=== PATIENT | female | born 1935 | race Caucasian/White ===

== ENCOUNTER → 2016-07-20 | Outpatient (CLI) | payer OTHER, MEDICARE | LOC: MMPC 11:11 | PROVIDERS: ATTEND Internal Medicine | DX: N18.4 Chronic kidney disease, stage 4 (severe) (principal); E66.01 Morbid (severe) obesity due to excess calories; R21 Rash and other nonspecific skin eruption; R76.8 Other specified abnormal immunological findings in serum; I10 Essential (primary) hypertension; E78.5 Hyperlipidemia, unspecified; F32.9 Major depressive disorder, single episode, unspecified; R60.0 Localized edema; E11.9 Type 2 diabetes mellitus without complications; Z79.4 Long term (current) use of insulin | CPT/HCPCS: 99204; G0463 ==

== ENCOUNTER → 2016-08-11 | Outpatient (CLI) | payer OTHER, MEDICARE | LOC: MMPC 09:00 | PROVIDERS: ATTEND Obstetrics & Gynecology | DX: N83.202 Unspecified ovarian cyst, left side (principal) | CPT/HCPCS: 99213; G0463 ==

== ENCOUNTER → 2016-08-13 | Outpatient (CLI) | payer OTHER, MEDICARE ==
--- NOTE | 2016-08-13 15:49 | DI ---
PELVIC ULTRASOUND, 08/13/2016 2:27 PM Clinical History: Left ovarian cyst. Previous hysterectomy. Previous Exam: None at this facility. Technique: Transabdominal scans are performed. The uterus is surgically absent. There is a 22 mm simple cyst of the left ovary. The right ovary is s mall and measures 15 x 15 x 25 mm but is otherwise normal. There are no fluid collections or masses. Readin. 22 mm simple cyst of the left ovary. The right ovary is small but normal. 2. Status post hysterectomy.
== END ==
LOC: US 14:15
PROVIDERS: ATTEND Obstetrics & Gynecology
DX: N83.202 Unspecified ovarian cyst, left side (principal); Z90.710 Acquired absence of both cervix and uterus
CPT/HCPCS: 76856

== ENCOUNTER → 2016-08-20 | Outpatient (CLI) | payer OTHER, MEDICARE ==
[2016-08-20 10:33] LABS: BLOOD UREA NITROGEN 40 mg/dL (7-22); BUN/CREATININE RATIO 14.28 (6-20); CALCIUM 9.7 mg/dL (8.7-10.7); PHOSPHORUS 4.6 mg/dl (2.4-4.3)
== END ==
LOC: LAB 10:12
PROVIDERS: ATTEND Internal Medicine Nephrology
DX: N18.3 Chronic kidney disease, stage 3 (moderate) (principal)
CPT/HCPCS: 36415; 80069

== ENCOUNTER → 2016-09-08 | Outpatient (CLI) | payer OTHER, MEDICARE ==
[2016-09-08 11:12] LABS: BLOOD UREA NITROGEN 51 mg/dL (7-22); CALCIUM 9.3 mg/dL (8.7-10.7); PHOSPHORUS 6.5 mg/dl (2.4-4.3); SERUM ALBUMIN 3.6 g/dL (3.5-4.8)
== END ==
LOC: LAB 10:25
PROVIDERS: ATTEND Internal Medicine Nephrology
DX: N18.3 Chronic kidney disease, stage 3 (moderate) (principal)
CPT/HCPCS: 36415; 80069

== ENCOUNTER → 2016-09-16 | Outpatient (CLI) | payer OTHER, MEDICARE | LOC: MMPC 11:11 | PROVIDERS: ATTEND Internal Medicine | DX: E11.9 Type 2 diabetes mellitus without complications (principal); R60.0 Localized edema; F32.9 Major depressive disorder, single episode, unspecified; N18.4 Chronic kidney disease, stage 4 (severe); I10 Essential (primary) hypertension; E78.5 Hyperlipidemia, unspecified | CPT/HCPCS: 99213; G0463 ==

== ENCOUNTER → 2016-09-22 | Outpatient (CLI) | payer OTHER, MEDICARE | LOC: MMPC 09:00 | PROVIDERS: ATTEND Obstetrics & Gynecology | DX: N83.202 Unspecified ovarian cyst, left side (principal) | CPT/HCPCS: 99212; G0463 ==

== ENCOUNTER → 2016-11-06 | Outpatient (CLI) | payer OTHER, MEDICARE ==
[2016-11-06 11:01] LABS: HEMATOCRIT 32.9 % (37.0-47.0); MEAN CORPUSCULAR HEMOGLOBIN 31.3 PG (27-31); MEAN CORPUSCULAR HGB CONC 33.4 g/dL (33-37); MEAN CORPUSCULAR VOLUME 93.7 FL (81-99); MEAN PLATELET VOLUME 11.2 FL (7.4-12.2); RED BLOOD COUNT 3.51 10^6/uL (4.20-5.40)
[2016-11-06 11:11] LABS: BLOOD UREA NITROGEN 54 mg/dL (7-22); BUN/CREATININE RATIO 19.28 (6-20); CALCIUM 9.7 mg/dL (8.7-10.7); SERUM ALBUMIN 3.7 g/dL (3.5-4.8)
== END ==
LOC: LAB 10:12
PROVIDERS: ATTEND Internal Medicine Nephrology
DX: N18.3 Chronic kidney disease, stage 3 (moderate) (principal)
CPT/HCPCS: 36415; 80069; 82565; 83970; 84156; 85027

== ENCOUNTER 2017-10-02 20:43 | Inpatient (IN) ==
[2017-10-02] MEDS ORDERED: Sodium Chloride 0.9% 1,000 ML PRIMARY IV ONE (20:55)
[2017-10-02] MEDS ORDERED: LORazepam 2 MG/1 ML VIAL IVP ONE ×2 (20:55→22:12)
[2017-10-02 21:05] LABS: BASOPHILS # (AUTO) 0.04 10*3/UL; BASOPHILS % (AUTO) 0.6 % (0-1); EOSINOPHILS # (AUTO) 0.29 10*3/UL; EOSINOPHILS % (AUTO) 4.5 % (0-8); Hematocrit [HCT] 34.6 % (37.0-47.0); Hemoglobin [HGB] 11.7 g/dL (12.0-16.0); LYMPHOCYTES # (AUTO) 2.15 10*3/uL; MEAN CORPUSCULAR HEMOGLOBIN 33.5 PG (27-31); MEAN CORPUSCULAR HGB CONC 33.8 g/dL (33-37); MEAN CORPUSCULAR VOLUME 99.1 FL (81-99); MEAN PLATELET VOLUME 10.9 FL (7.4-12.2); MONOCYTES # (AUTO) 0.54 10*3/UL (0.3-0.8); MONOCYTES % (AUTO) 8.3 % (5-15); NEUTROPHILS # (AUTO) 3.47 10*3/UL; NEUTROPHILS % (AUTO) 53.3 % (50-80); RED BLOOD COUNT 3.49 10^6/uL (4.20-5.40)
[2017-10-02 21:19] LABS: LIPASE 344 IU/L (23-300); PLATELET MORPHOLOGY COMMENT NORMAL MORPHOLOGY (NORM); RBC MORPHOLOGY COMMENT NORMAL MORPHOLOGY (NORM); WBC MORPHOLOGY COMMENT NORMAL MORPHOLOGY (NORM)
[2017-10-02 21:21] LABS: BLOOD UREA NITROGEN 57 mg/dL (7-22); BUN/CREATININE RATIO 14.61 (6-20); SERUM ALBUMIN 3.9 g/dL (3.5-4.8)
[2017-10-02 21:46] LABS: BILIRUBIN,URINE NEGATIVE (NEG); CLARITY,URINE CLEAR (CLEAR); COLOR,URINE YELLOW (Y); GLUCOSE, URINE (UA) 100 mg/dL (NEG); OCCULT BLOOD,URINE MODERATE (NEG); PH,URINE 5.5 (5.0-8.5); PROTEIN,URINE >300 mg/dl (NEG); UROBILINOGEN,URINE 0.2 EU/dL (0.2)
[2017-10-02 22:04] LABS: URINE SAMPLE TYPE CATH SPECIMEN
[2017-10-02 22:05] LABS: RENAL EPITHELIAL CELLS,URINE FEW; SQUAMOUS EPITHELIAL CELL,UR FEW; URINE CRYSTALS MANY
--- NOTE | 2017-10-02 22:32 | PDOC ---
General Adult HPI - General Chief Complaint: Neck / Back Complaint Stated Complaint: LOW BACK PAIN Date Seen by Provider: 10/02/17 Time Seen by Provider: 20:50 Source: POSITIVE: Patient, EMS Exam Limitations: POSITIVE: No limitations Nurse's Notes Reviewed & Considered: Yes EMS Report Reviewed & Considered: Verbal - History of Present Illness Initial Comment: The patient is an 81-year-old female who is brought to the emergency department by ambulance with complaints of lower back pain. She has a known history of spinal stenosis and has had problems with her lower back all of her life. She states that recently she has been having worsening lower back pain. She denies any recent falls or injury. She was evaluated here in the emergency department last night and given several different pain medications. She states that she had some relief from pain until about 5:00 this morning. All day today she has been having significant pain. She has not been able to take any of her medications secondary to nausea and vomiting. She finally presents back to the emergency department by ambulance. She states that her pain is across her lower back and primarily down her right leg. She also has some pain that radiates around to her right lower abdomen. She denies any fevers or chills, urinary symptoms, chest pain or any other associated complaints. She is diabetic. She also has chronic kidney disease. She saw a neurosurgeon recently for her back and was told that she is not a surgical candidate at this point for her spinal stenosis because of her underlying medical issues. Have you received a tetanus shot in the past 10 years?: Unknown - Patient Home Medications Home Medications: Home Medications calcitriol 0.25 mcg capsule 0.25 mcg PO DAILY #90 cap 03/22/17 furosemide 20 mg tablet 20 mg PO DAILY #30 tab 03/22/17 insulin lispro (U-100) 100 unit/mL subcutaneous pen 15 unit SUBCUT AC #15 ml 10/30 levothyroxine 100 mcg tablet 100 mcg PO DAILY #100 tab 03/22/17 atenolol 25 mg tablet 37.5 mg PO QD #135 tab 07/19/17 insulin glargine (U-100) 100 unit/mL (3 mL) subcutaneous pen 15 unit SUBCUT QHS ml 07/19/17 losartan 100 mg tablet 100 mg PO DAILY #90 tab 07/19/17 rosuvastatin 20 mg tablet 20 mg PO QHS #90 tab 07/19/17 sertraline 50 mg tablet 50 mg PO DAILY #90 tab 07/19/17 triamcinolone acetonide 0.025 % topical cream 1 applic TOPICAL QDAY #80 g gabapentin 100 mg capsule 100 mg PO BID PRN #14 cap 09/16/17 tramadol 50 mg tablet 50 mg PO Q12H PRN #20 tab 09/16/17 Pen Needle, Diabetic [Pen Needle] 0 unit .ROUTE .MEDSUPPLY 10/02/17 - Patient Allergies Allergies/Adverse Reactions: Allergies 3 Allergy/AdvReac Type Severity Reaction Status Date / Time Sulfa (Sulfonamide Allergy Severe hives Verified 10/02/17 20:50 Antibiotics) pencillin Allergy Severe throat Uncoded 10/02/17 20:50 swelling Past Medical History - heen HEENT History: Denies History Cardiovascular History: Hypertension, CHF, Hyperlipidemia Respiratory History: Denies History Gastrointestinal History: Denies History Genitourinary History: Renal Failure Endocrine History: Type 2 Diabetes (insulin), Hypothyroidism Musculoskeletal History: Back Pain Additional Musculoskeletal History: PT HAS SCOLIOSIS AND SPINAL STENOSIS Neurological History: Denies History Blood Disorders: Denies History Psychiatric History: Denies History History of Sexually Transmitted Diseases: No Cancer History: Denies History In Past Year Been Physically Harmed or Verbally Threatened: No History of MDRO: No History of Other Communicable Diseases: No Tobacco Use: Never Smoker In the Past 12 Months, Have Used or Abuse Any Substance: None Type / Date of Surgery: PT STATES "I DON'T REMEMBER" Significant Family History: No pertinent family hx Past Medical History Reviewed: Reviewed - No Changes ROS - Limitations ROS Limitations: No Limitations Constitution: DENIES: Chills, Fever Cardiovascular: REPORTS: Denies Cardiac Symptoms Respiratory: REPORTS: Denies Resp Symptoms Neurological: DENIES: Headache Gastrointestinal: REPORTS: Abdominal Pain (Some right-sided lower abdominal pain ), Nausea, Vomitting (Has not been able to keep anything down including her medications today) Musculoskeletal: REPORTS: Back Pain. DENIES: Lower Extremity Swelling Genitourinary: DENIES: Dysuria, Difficulty Urinating Eyes: REPORTS: Denies Symptoms ENT: REPORTS: Denies Symptoms Skin: DENIES: Rash General Adult Exam - General Appearance General Appearance: POSITIVE: Alert, Cooperative, Other (She does appear to be in pain) - HEENT HEENT: POSITIVE: Head Inspection Nml, Eyes Inspection Nml, Ears Inspection Nml, Nose Inspection Nml, Pharynx Inspect. Nml, Dry Mucous Membranes - Neck Neck: POSITIVE: Normal Inspection. NEGATIVE: Lymphadenopathy - Respiratory Respiratory: POSITIVE: No Respiratory Distress, Breath Sounds Normal - Cardiovascular Cardiovascular: POSITIVE: Regular Rate & Rhythm, No Murmur Peripheral Pulses: Dorsalis-pedis (R): 2+, Dorsalis-pedis (L): 2+ - Abdomen Additional Abdominal Details: Her abdomen is distended, no guarding or rebound tenderness, no tenderness to exam - Back Back: POSITIVE: Other (She does have tenderness in the lower lumbar region) - Skin Skin: POSITIVE: Normal Color, No Rash - Extremities Extremity: Normal ROM: (All Extremities), Normal Inspection: (All Extremities) - Neurological / Psychological Neurological: POSITIVE: Oriented X3, Motor Normal, Sensation Normal General Adult Progress - Results Reviewed by me Xrays/CTs/US Reviewed by me: Yes Discussed with Radiologist: Yes Radiology Findings: CT the abdomen and pelvis done without IV contrast shows cholelithiasis, degenerative changes in the lumbar spine with no acute fracture , small cystic mass in the adnexa with no other acute abnormalities per radiologist. Lab Results Reviewed by Me: Yes Lab Results:: Laboratory Results 3 10/02/17 10/02/17 10/02/17 20:55 20:55 20:55 WBC 6.50 RBC 3.49 L Hgb 11.7 L Hct 34.6 L MCV 99.1 H MCH 33.5 H MCHC 33.8 RDW Std Deviation 50.8 H RDW Coeff of Sylvester 14.8 H Plt Count 202 MPV 10.9 Immature Gran % (Auto) 0.2 Neut % (Auto) 53.3 Lymph % (Auto) 33.1 [place] % (Auto) 8.3 Eos % (Auto) 4.5 Baso % (Auto) 0.6 Immature Gran # (Auto) 0.01 Neut # (Auto) 3.47 Lymph # (Auto) 2.15 [place] # (Auto) 0.54 Eos # (Auto) 0.29 Baso # (Auto) 0.04 WBC Morphology Comment Normal morphology Plt Morphology Comment Normal morphology RBC Morph Comment Normal morphology Sodium 137 Potassium 4.3 Chloride 102 Carbon Dioxide 25 Anion Gap 10 BUN 57 H Creatinine 3.9 H Estimated GFR Technician Trainee BUN/Creatinine Ratio 14.61 Glucose 198 H Calculated Osmolality 305.0 H Calcium 9.9 Magnesium 2.2 Total Bilirubin 0.5 AST 27 ALT 31 Alkaline Phosphatase 57 C-Reactive Protein 0.9 Total Protein 7.3 Albumin 3.9 Globulin 3.4 Albumin/Globulin Ratio 1.10 L Amylase 128 H Lipase 344 H Ur Collection Type Urine Color Urine Clarity Urine pH Ur Specific [place] Urine Protein Urine Glucose (UA) Urine Ketones Urine Occult Blood Urine Nitrate Urine Bilirubin Urine Urobilinogen Ur Leukocyte Esterase Urine RBC Urine WBC Ur Squamous Epith Cells Ur Renal Epithelial Cell Urine Crystals Urine Bacteria Urine Casts Urine Mucus Urine Trichomonas Urine Yeast Ur Culture Indicated? 3 10/02/17 21:40 WBC RBC Hgb Hct MCV MCH MCHC RDW Std Deviation RDW Coeff of Sylvester Plt Count MPV Immature Gran % (Auto) Neut % (Auto) Lymph % (Auto) [place] % (Auto) Eos % (Auto) Baso % (Auto) Immature Gran # (Auto) Neut # (Auto) Lymph # (Auto) [place] # (Auto) Eos # (Auto) Baso # (Auto) WBC Morphology Comment Plt Morphology Comment RBC Morph Comment Sodium Potassium Chloride Carbon Dioxide Anion Gap BUN Creatinine Estimated GFR BUN/Creatinine Ratio Glucose Calculated Osmolality Calcium Magnesium Total Bilirubin AST ALT Alkaline Phosphatase C-Reactive Protein Total Protein Albumin Globulin Albumin/Globulin Ratio Amylase Lipase Ur Collection Type Cath specimen Urine Color Yellow Urine Clarity Clear Urine pH 5.5 Ur Specific [place] 1.025 Urine Protein >300 A Urine Glucose (UA) 100 Urine Ketones Negative Urine Occult Blood Moderate H Urine Nitrate Negative Urine Bilirubin Negative Urine Urobilinogen 0.2 Ur Leukocyte Esterase Negative Urine RBC 4-8 A Urine WBC None Ur Squamous Epith Cells Few Ur Renal Epithelial Cell Few Urine Crystals Many Urine Bacteria None Urine Casts None Urine Mucus None Urine Trichomonas None Urine Yeast None Ur Culture Indicated? Culture not set CBC and BMP: 10/02/17 20:55 10/02/17 20:55 - Patient's Progress MDM / ED Course: The patient had received fentanyl 50 g and Zofran 4 mg IV in route per EMS. This did not really help her pain significantly. She was given Ativan 1 mg IV with significant relief initially. Her oxygen saturations however dropped when she was sleeping and she was placed on oxygen. After CT she did have recurrent pain and received a second dose of Ativan. CT scan of the abdomen and pelvis to include the lumbar spine was done without IV contrast secondary to her history of kidney disease. This showed cholelithiasis and a small cystic mass in the adnexa, no evidence of acute spinal fracture. Lab work revealed slightly elevated amylase and lipase with normal liver functions. Her creatinine was elevated to 3.9 up from her baseline of 3. Electrolytes were normal. White count was normal. Urinalysis shows protein with no evidence of infection. Findings were discussed with the patient. The patient lives alone and has agreed to be admitted to the hospital for pain control, hydration. Dr. Hunter has agreed to admit the patient. - Consult Counseled: POSITIVE: Patient, RE: Lab Results, RE: Radiology Results, RE: DX Patient Care Time - Estimated PCT Patient Care Time (In Minutes): 35 Vital Signs - VS Reviewed Vital Signs Reviewed: Yes (written nursing documentation reviewed) Discharge Clinical Impression: Chronic back pain, Chronic kidney disease, stage 4 (severe), Diabetes, Spinal stenosis, Back pain, Dehydration, Cholelithiasis, Elevated pancreatic enzyme Discharge Disposition: Admit to Inpatient Condition: Fair Follow Up With: JENNA CONTE [Primary Care Provider] - Date Decision to Admit to Inpatient: 10/02/17 Time Decision to Admit to Inpatient: 23:15
--- NOTE | 2017-10-02 22:50 | DI ---
EXAM: CT Abdomen and Pelvis Without Intravenous Contrast CLINICAL HISTORY: ITS.REASON low back pain, abdominal pain and vomiting Physician Notes: Tech Comments: TECHNIQUE: Axial computed tomography images of the abdomen and pelvis without intravenous contrast. COMPARISON: No relevant prior studies available. FINDINGS: Lung bases: Interstitial lung disease, possibly mild pulmonary fibrosis. Heart: Cardiomegaly. ABDOMEN: Liver: Unremarkable Gallbladder and bile ducts: Cholelithiasis. Pancreas: Unremarkable. Spleen: Unremarkable. Adrenals: Unremarkable. Kidneys and ureters: Small radiodense cyst/focus in the right kidney. No hydronephrosis. Stomach and bowel: Colonic diverticula without evidence of diverticulitis. PELVIS: Appendix: No findings to suggest acute appendicitis. Bladder: Unremarkable. Reproductive: 2 cm left adnexal cystic lesion. Hysterectomy. ABDOMEN and PELVIS: Intraperitoneal space: Unremarkable. Bones/joints: No acute fracture. Soft tissues: Patchy subcutaneous edema. Vasculature: Unremarkable. No abdominal aortic aneurysm. Lymph nodes: No enlarged lymph nodes. IMPRESSION: 1. Cholelithiasis. 2. 2 cm left adnexal cystic lesion.
[2017-10-02] MEDS ORDERED: GABAPENTIN 100 MG CAPSULE PO PRN (23:40)
[2017-10-02] MEDS ORDERED: DOCUSATE 100 MG CAPSULE PO PRN (23:40)
[2017-10-02] MEDS ORDERED: CALCIUM CARBONATE 500 MG (TUMS) CHEWABLE TABLET PO PRN (23:40)
[2017-10-02] MEDS ORDERED: ACETAMINOPHEN 325 MG TABLET PO PRN (23:40)
[2017-10-02] MEDS ORDERED: LIDOCAINE W/ SODIUM BICARB 0.5 ML SYR SUBD PRN (23:40)
[2017-10-02] MEDS ORDERED: traMADol 50 MG TABLET PO PRN (23:40)
[2017-10-02] MEDS ORDERED: Rosuvastatin Tab 20 MG TAB PO SCH (23:40)
[2017-10-02] MEDS ORDERED: Insulin Glargine SoloStar Inj 100 UNIT/ML INSULN.PEN SUBCUT SCH (23:40)
[2017-10-02] MEDS ORDERED: ONDANSETRON 4 MG/2 ML VIAL IVP PRN (23:40)
[2017-10-03] MEDS: HEPARIN 5000 UNIT/1 ML SUBCUT SCH ×2 (00:03→09:06)
[2017-10-03] MEDS: ATENOLOL 25 MG TABLET PO SCH ×2 (00:03→10:25)
[2017-10-03] MEDS: Lactated Ringers 1,000 ML PRIMARY IV SCH ×2 (00:03→08:29)
[2017-10-03] MEDS: HYDROmorphone 2 MG/1 ML IVP PRN ×3 (00:10→09:25)
[2017-10-03] MEDS ORDERED: LEVOTHYROXINE 100 MCG TABLET PO SCH (05:30)
[2017-10-03 06:08] LABS: BLOOD UREA NITROGEN 53 mg/dL (7-22); BUN/CREATININE RATIO 14.72 (6-20); SERUM ALBUMIN 3.1 g/dL (3.5-4.8)
[2017-10-03] MEDS ORDERED: Insulin Lispro Flexpen 300 UNIT/3 ML INSULN.PEN SUBCUT SCH (07:00)
[2017-10-03] MEDS ORDERED: LIDOCAINE HCL 2 % 10 ML JELLY URO-JECT TOPICAL PRN (08:28)
[2017-10-03] MEDS ORDERED: Sertraline Tab 50 MG TAB PO SCH (09:00)
[2017-10-03] MEDS ORDERED: CALCITRIOL 0.25 MCG CAPSULE PO SCH (09:00)
--- NOTE | 2017-10-03 10:38 | PDOC ---
HPI - History of Present Illness History of Present Illness: Final Discharge Diagnosis: Current Visit Problems Problem Status Onset Code Chronic back pain Acute M54.9, G89.29 Diabetes Acute E11.9 Spinal stenosis Acute M48.00 Back pain Acute M54.9 Dehydration Acute E86.0 Cholelithiasis Acute K80.20 Elevated pancreatic enzyme Acute R74.8 Chronic kidney disease, stage 4 (severe) Chronic 07/20/16 N18.4 Diagnostic Data, Laboratory Data, and Procedures of Signifigance: Laboratory Results 10/02/17 10/02/17 10/02/17 Range/Units 20:55 20:55 20:55 WBC 6.50 (4.8-10.8) 10^3/uL RBC 3.49 L (4.20-5.40) 10^6/uL Hgb 11.7 L (12.0-16.0) g/dL Hct 34.6 L (37.0-47.0) % MCV 99.1 H (81-99) FL MCH 33.5 H (27-31) PG MCHC 33.8 (33-37) g/dL RDW Std Deviation 50.8 H (39-50) fL RDW Coeff of Sylvester 14.8 H (11.5-14.5) % Plt Count 202 (140-350) 10*3/uL MPV 10.9 (7.4-12.2) FL Immature Gran % (Auto) 0.2 (0-5) % Neut % (Auto) 53.3 (50-80) % Lymph % (Auto) 33.1 (10-50) % [place] % (Auto) 8.3 (5-15) % Eos % (Auto) 4.5 (0-8) % Baso % (Auto) 0.6 (0-1) % Immature Gran # (Auto) 0.01 10*3/UL Neut # (Auto) 3.47 10*3/UL Lymph # (Auto) 2.15 10*3/uL [place] # (Auto) 0.54 (0.3-0.8) 10*3/UL Eos # (Auto) 0.29 10*3/UL Baso # (Auto) 0.04 10*3/UL WBC Morphology Comment Normal morphology (NORM) Plt Morphology Comment Normal morphology (NORM) RBC Morph Comment Normal morphology (NORM) Sodium 137 (135-145) meq/L Potassium 4.3 (3.8-5.2) meq/L Chloride 102 (98-112) meq/L Carbon Dioxide 25 (23-33) meq/L Anion Gap 10 (5-20) BUN 57 H (7-22) mg/dL Creatinine 3.9 H (0.50-1.20) mg/dL Estimated GFR Lining Closer BUN/Creatinine Ratio 14.61 (6-20) Glucose 198 H (78-110) mg/dL Calculated Osmolality 305.0 H (267-292) mOsm/kg Calcium 9.9 (8.7-10.7) mg/dL Magnesium 2.2 (1.6-2.4) mg/dL Total Bilirubin 0.5 (0.3-1.2) mg/dL AST 27 (8-39) IU/L ALT 31 (9-52) IU/L Alkaline Phosphatase 57 (38-126) IU/L C-Reactive Protein 0.9 (0.0-0.9) mg/dL Total Protein 7.3 (6.1-8.0) g/dL Albumin 3.9 (3.5-4.8) g/dL Globulin 3.4 (2.50-4.10) g/dL Albumin/Globulin Ratio 1.10 L (1.3-2.0) mg/g Amylase 128 H (30-110) U/L Lipase 344 H (23-300) IU/L Ur Collection Type Urine Color (Y) Urine Clarity (CLEAR) Urine pH (5.0-8.5) Ur Specific [place] (1.005-1.030) Urine Protein (NEG) mg/dl Urine Glucose (UA) (NEG) mg/dL Urine Ketones (NEG) Urine Occult Blood (NEG) Urine Nitrate (NEG) Urine Bilirubin (NEG) Urine Urobilinogen (0.2) EU/dL Ur Leukocyte Esterase (NEG) Urine RBC (NONE) /hpf Urine WBC (NONE) Ur Squamous Epith Cells (NONE) Ur Renal Epithelial Cell (NONE) Urine Crystals Urine Bacteria (NONE) Urine Casts (NONE) Urine Mucus (NONE) Urine Trichomonas (NONE) Urine Yeast (NONE) Ur Culture Indicated? 10/02/17 10/03/17 Range/Units 21:40 05:10 WBC (4.8-10.8) 10^3/uL RBC (4.20-5.40) 10^6/uL Hgb (12.0-16.0) g/dL Hct (37.0-47.0) % MCV (81-99) FL MCH (27-31) PG MCHC (33-37) g/dL RDW Std Deviation (39-50) fL RDW Coeff of Sylvester (11.5-14.5) % Plt Count (140-350) 10*3/uL MPV (7.4-12.2) FL Immature Gran % (Auto) (0-5) % Neut % (Auto) (50-80) % Lymph % (Auto) (10-50) % [place] % (Auto) (5-15) % Eos % (Auto) (0-8) % Baso % (Auto) (0-1) % Immature Gran # (Auto) 10*3/UL Neut # (Auto) 10*3/UL Lymph # (Auto) 10*3/uL [place] # (Auto) (0.3-0.8) 10*3/UL Eos # (Auto) 10*3/UL Baso # (Auto) 10*3/UL WBC Morphology Comment (NORM) Plt Morphology Comment (NORM) RBC Morph Comment (NORM) Sodium 139 (135-145) meq/L Potassium 4.5 (3.8-5.2) meq/L Chloride 107 (98-112) meq/L Carbon Dioxide 23 (23-33) meq/L Anion Gap 9 (5-20) BUN 53 H (7-22) mg/dL Creatinine 3.6 H (0.50-1.20) mg/dL Estimated GFR Lining Closer BUN/Creatinine Ratio 14.72 (6-20) Glucose 121 H (78-110) mg/dL Calculated Osmolality 302.0 H (267-292) mOsm/kg Calcium 9.2 (8.7-10.7) mg/dL Magnesium (1.6-2.4) mg/dL Total Bilirubin 0.4 (0.3-1.2) mg/dL AST 22 (8-39) IU/L ALT 34 (9-52) IU/L Alkaline Phosphatase 46 (38-126) IU/L C-Reactive Protein (0.0-0.9) mg/dL Total Protein 5.7 L (6.1-8.0) g/dL Albumin 3.1 L (3.5-4.8) g/dL Globulin 2.6 (2.50-4.10) g/dL Albumin/Globulin Ratio 1.10 L (1.3-2.0) mg/g Amylase (30-110) U/L Lipase (23-300) IU/L Ur Collection Type Cath specimen Urine Color Yellow (Y) Urine Clarity Clear (CLEAR) Urine pH 5.5 (5.0-8.5) Ur Specific [place] 1.025 (1.005-1.030) Urine Protein >300 A (NEG) mg/dl Urine Glucose (UA) 100 (NEG) mg/dL Urine Ketones Negative (NEG) Urine Occult Blood Moderate H (NEG) Urine Nitrate Negative (NEG) Urine Bilirubin Negative (NEG) Urine Urobilinogen 0.2 (0.2) EU/dL Ur Leukocyte Esterase Negative (NEG) Urine RBC 4-8 A (NONE) /hpf Urine WBC None (NONE) Ur Squamous Epith Cells Few (NONE) Ur Renal Epithelial Cell Few (NONE) Urine Crystals Many Urine Bacteria None (NONE) Urine Casts None (NONE) Urine Mucus None (NONE) Urine Trichomonas None (NONE) Urine Yeast None (NONE) Ur Culture Indicated? Culture not set History and Physical pertinent to Admission: Course of Hospitalization: This very nice 81-year-old the female with past medical history significant for , diabetes on insulin, chronic renal failure, hypertension, spinal stenosis with severe lower back pain was seen in the ER the day before was treated with some pain medication by Dr. Clemens discharged home patient comes back the next day with the severe back pain and multiple medications were tried did not work patient was admitted for the acute intolerable pain, acute on chronic renal failure, elevated lipase, pertinent area and the hematuria. This morning the she did not make any urine overnight she was hydrated with lactated Ringer Quevedo was inserted and got out about 700 mL had to stop the fluids because of crackles in her lungs patient had the intense severe back pain during the Quevedo insertion and dye lauded was given for pain relief and the patient is a little groggy but she is awake. CT scan abdomen and pelvis revealed cholelithiasis. Unable to do MRI of pancreas not available on Wednesday. I discussed the case with Dr. Cesar at [facility] because of her acute on chronic renal failure poor urine output and crackles in her lungs when hydrated she would therefore benefit from nephrology expertise also probably needs MRIs of her lower back to see of the severity of the spinal stenosis if this is affecting her urine output and elevated lipase possible pancreatitis patient will be transferred to higher level of care where multiple specialties available Dr. Cesar graciously accepted the patient. Family member of patient was called daughter [place] just had foot surgery and now was updated on the situation and agreed with the transfer. Beta db was held because of heart rate in the 40 range. Ultrasound of her kidneys no official report yet but there is color flow in both kidneys and they seem echogenic On the date of discharge, the patient was examined: Gen.: [, confused, ] Heart: [Regular rate and rhythm, no murmurs, clicks, gallops, or rubs] Lungs: [Clear to auscultation bilaterally, breathing is nonlabored] Abdomen/GI: [Normal tones on auscultation, soft, nontender, nondistended] Musculoskeletal/extremities: [No clubbing, cyanosis, or edema] Vitals reviewed and are listed below Vital Signs (24 hrs) Temp Pulse Pulse Pulse Resp BP Pulse Ox 10/03/17 07:41 97 F 50 L 20 158/46 97 10/03/17 07:00 47 L 47 L 10/03/17 05:32 95 10/03/17 04:48 96.9 F 55 L 16 180/52 91 10/03/17 03:00 62 10/02/17 23:50 97.6 F 49 L 14 210/62 100 10/02/17 23:43 50 L 16 10/02/17 20:43 96.8 F 52 L 18 177/78 94 Assessment and Plan: 1. As per discharge assessments above 2. Disposition: Transferred to [facility] 3. Condition on discharge, stable 4. Diet: Nothing by mouth 5. Activities: resume normal activities 6. Follow-Up: 1. [PCP] 2. 7. Medications at the Time of Discharge: Home Medications 3 Medication Instructions Recorded Confirmed Type calcitriol 0.25 mcg capsule 0.25 mcg PO DAILY #90 cap 03/22/17 10/02/17 Rx furosemide 20 mg tablet 20 mg PO DAILY #30 tab 03/22/17 10/02/17 Rx insulin lispro (U-100) 100 unit/mL 15 unit SUBCUT AC #15 ml 03/22/17 10/02/17 Rx subcutaneous pen levothyroxine 100 mcg tablet 100 mcg PO DAILY #100 tab 03/22/17 10/02/17 Rx atenolol 25 mg tablet 37.5 mg PO QD #135 tab 07/19/17 10/02/17 Rx insulin glargine (U-100) 100 15 unit SUBCUT QHS ml 07/19/17 10/02/17 History unit/mL (3 mL) subcutaneous pen losartan 100 mg tablet 100 mg PO DAILY #90 tab 07/19/17 10/02/17 Rx rosuvastatin 20 mg tablet 20 mg PO QHS #90 tab 07/19/17 10/02/17 Rx sertraline 50 mg tablet 50 mg PO DAILY #90 tab 07/19/17 10/02/17 Rx triamcinolone acetonide 0.025 % 1 applic TOPICAL QDAY #80 g 07/19/17 10/02/17 Rx topical cream gabapentin 100 mg capsule 100 mg PO BID PRN #14 cap 09/16/17 10/02/17 Rx tramadol 50 mg tablet 50 mg PO Q12H PRN #20 tab 09/16/17 10/02/17 Rx Pen Needle, Diabetic [Pen Needle] 0 unit .ROUTE .MEDSUPPLY 10/02/17 10/02/17 History Active Medications Generic Name Dose Route Start Last Admin Trade Name Freq PRN Reason Stop Dose Admin Acetaminophen 650 mg 10/02/17 23:40 10/03/17 09:09 Tylenol PO 650 mg Q6H PRN Administration Pain or Fever Atenolol 37.5 mg 10/02/17 23:40 10/03/17 10:25 Tenormin PO Not Given DAILY NGUYỄN Calcitriol 0.25 mcg 10/03/17 09:00 10/03/17 09:10 Rocaltrol PO 0.25 mcg DAILY NGUYỄN Administration Calcium Carbonate 1 - 2 tab 10/02/17 23:40 Tums PO Q6H PRN Heartburn Docusate Sodium 100 mg 10/02/17 23:40 Colace PO BID PRN Constipation Gabapentin 100 mg 10/02/17 23:40 Neurontin PO BID PRN pain Heparin Sodium (Porcine) 5,000 unit 10/03/17 00:00 10/03/17 09:06 Heparin Inj SUBCUT 5,000 unit Q8H NGUYỄN Administration Hydromorphone HCl 1 mg 10/02/17 23:40 10/03/17 09:25 Dilaudid Inj IVP 1 mg Q3H PRN Administration Pain Sodium Chloride 25 mls @ 200 mls/hr 10/02/17 23:40 Normal Saline 0.9% IV .Post Infusion PRN No Primary IV for Flush ONLY Insulin Glargine 15 unit 10/02/17 23:40 10/03/17 00:04 Lantus Solostar Inj SUBCUT 15 unit BEDTIME NGUYỄN Administration Insulin Human Lispro 15 unit 10/03/17 07:00 10/03/17 08:23 Humalog Flexpen Inj SUBCUT Not Given AC NGUYỄN Levothyroxine Sodium 100 mcg 10/03/17 05:30 10/03/17 04:47 Synthroid PO 100 mcg DAILY@0530 NGUYỄN Administration Lidocaine HCl 0.5 ml 10/02/17 23:40 Lidocaine Buffered Inj SUBD ONCE PRN IV Starts Lidocaine HCl 10 ml 10/03/17 08:28 Xylocaine Uro-Ject 2% TOPICAL ONCE PRN Discomfort catheter insertion Ondansetron HCl 4 mg 10/02/17 23:40 Zofran Inj IVP Q4H PRN NAUSEA / VOMITING Rosuvastatin Calcium 20 mg 10/02/17 23:40 10/03/17 00:04 Crestor PO 20 mg BEDTIME NGUYỄN Administration Sertraline HCl 50 mg 10/03/17 09:00 10/03/17 09:10 Zoloft PO 50 mg DAILY NGUYỄN Administration Tramadol HCl 50 mg 10/02/17 23:40 10/03/17 00:10 Ultram PO 50 mg Q12H PRN Administration pain 8. Time, care, counseling and coordination of care for this discharge is greater than 30 minutes. Past Medical History Tobacco Use: Never Smoker In the Past 12 Months, Have Used or Abuse Any of the Following Substance: None Medication / Allergies Home Medications: Home Medications 3 Medication Instructions Recorded Confirmed Type calcitriol 0.25 mcg capsule 0.25 mcg PO DAILY #90 cap 03/22/17 10/02/17 Rx furosemide 20 mg tablet 20 mg PO DAILY #30 tab 03/22/17 10/02/17 Rx insulin lispro (U-100) 100 unit/mL 15 unit SUBCUT AC #15 ml 03/22/17 10/02/17 Rx subcutaneous pen levothyroxine 100 mcg tablet 100 mcg PO DAILY #100 tab 03/22/17 10/02/17 Rx atenolol 25 mg tablet 37.5 mg PO QD #135 tab 07/19/17 10/02/17 Rx insulin glargine (U-100) 100 15 unit SUBCUT QHS ml 07/19/17 10/02/17 History unit/mL (3 mL) subcutaneous pen losartan 100 mg tablet 100 mg PO DAILY #90 tab 07/19/17 10/02/17 Rx rosuvastatin 20 mg tablet 20 mg PO QHS #90 tab 07/19/17 10/02/17 Rx sertraline 50 mg tablet 50 mg PO DAILY #90 tab 07/19/17 10/02/17 Rx triamcinolone acetonide 0.025 % 1 applic TOPICAL QDAY #80 g 07/19/17 10/02/17 Rx topical cream gabapentin 100 mg capsule 100 mg PO BID PRN #14 cap 09/16/17 10/02/17 Rx tramadol 50 mg tablet 50 mg PO Q12H PRN #20 tab 09/16/17 10/02/17 Rx Pen Needle, Diabetic [Pen Needle] 0 unit .ROUTE .MEDSUPPLY 10/02/17 10/02/17 History Allergies/Adverse Reactions: Allergies 3 Allergy/AdvReac Type Severity Reaction Status Date / Time Sulfa (Sulfonamide Allergy Severe hives Verified 10/03/17 06:32 Antibiotics) pencillin Allergy Severe throat Uncoded 10/03/17 06:32 swelling Exam - Vitals Vital Signs: Vital Signs Temperature 97 F Temperature Source Temporal Artery Scan Pulse Rate [Telemetry] 47 Pulse Rate [Pulse Oximeter] 50 Pulse Rate [Pulse Oximeter] 50 Pulse Rate 47 Respiratory Rate 20 Blood Pressure [Left Arm] 158/46 Pulse Ox 97 Oxygen Flow Rate 2 Oxygen Delivery Method Oxymask Height 5 ft 2 in Weight 215 lb Results - Labs CBC and BMP: 10/02/17 20:55 10/03/17 05:10
--- NOTE | 2017-10-03 10:42 | DCSUMMARY ---
Hospitalization Summary Hospital Course: Current Visit Problems Problem Status Onset Code Chronic back pain Acute M54.9, G89.29 Diabetes Acute E11.9 Spinal stenosis Acute M48.00 Back pain Acute M54.9 Dehydration Acute E86.0 Cholelithiasis Acute K80.20 Elevated pancreatic enzyme Acute R74.8 Chronic kidney disease, stage 4 (severe) Chronic 07/20/16 N18.4 Please see my H&P same-day admit discharge Exam - Vitals Vital Signs: Vital Signs Temperature 97 F Temperature Source Temporal Artery Scan Pulse Rate [Telemetry] 47 Pulse Rate [Pulse Oximeter] 50 Pulse Rate [Pulse Oximeter] 50 Pulse Rate 47 Respiratory Rate 20 Blood Pressure [Left Arm] 158/46 Pulse Ox 97 Oxygen Flow Rate 2 Oxygen Delivery Method Oxymask Height 5 ft 2 in Weight 215 lb
[2017-10-03 11:04] VITALS: BP 160/42; RESP 22; TEMP 97.9; O2SAT 93
--- NOTE | 2017-10-03 11:41 | DI ---
History: ITS.REASON sebas Physician Notes: Tech Comments: Exam: US RENAL Comparison: FINDINGS: The right kidney measures 9.8 x 4 x 4 cm the cortical thickness of 0.9 cm. The left kidney measures 9.6 x 4.9 x 4.5 cm with a cortical thickness of 0.6 cm. The kidneys appear within limits for echogenicity. No evidence of hydronephrosis, renal stone or perinephric edema identified. The bladder is collapsed with Quevedo catheter. IMPRESSION: Bilateral left greater than right cortical renal thinning seen. The kidneys appear within limits for echogenicity. No evidence of hydronephrosis, renal stone or perinephric edema identified. The bladder is collapsed with Quevedo catheter.
== END 2017-10-03 11:31 | disposition short-term general hospital (02) | DRG 552 ==
LOC: ER 20:43 → MED/SURG 23:20
PROVIDERS: ADMIT Internal Medicine; ATTEND Internal Medicine

== ENCOUNTER 2018-07-06 19:14 | Observation (INO) ==
--- NOTE | 2018-07-06 19:25 | PDOC ---
Gen Adult / Medical Screen HPI - General Chief Complaint: General Medical Stated Complaint: BACK PAIN, DIFFICULTY SWALLOWING WITH N/V Date Seen by Provider: 07/06/18 Time Seen by Provider: 19:24 Source: POSITIVE: Patient Exam Limitations: POSITIVE: No limitations Nurse's Notes Reviewed & Considered: Yes - Indicators Severe Pain (Greater than 5/10 Reported): Yes Chest or Abdominal Pain: Yes Inability to Walk: No Pt Reports Active High Risk Cond. (TB/Hepatitis/HIV/Chemo): No Abnormal Mental Status: No - History of Present Illness Initial Comments: This is an obese, well-developed, 82-year-old female, who comes in [facility] complaining of severe neck pain, dysphagia, and vomiting along with back pain. Patient was seen in emergency room yesterday with back pain. EKG was done and labs were performed and patient was sent home. She returns tonight with return of her back pain but now with significant pain in her throat, dysphagia, and vomiting. She is a very poor historian and is extremely anxious. Further review of symptoms is unavailable because the patient's anxiety. Body Location Affected: REPORTS: Neck, Back Timing: REPORTS: Gradual, Getting Worse Duration: >24 hours Similar Symptoms Previously: Yes Recent Care Received: REPORTS: Recently Seen, Treated by MD Any Prior Injuries Related to Current Complaint?: No - Patient Home Medications Home Medications: Home Medications triamcinolone acetonide 0.025 % topical cream 1 applic TOPICAL QDAY #80 g 07/19/17 Pen Needle, Diabetic [Pen Needle] 0 unit .ROUTE .MEDSUPPLY 10/02/17 insulin glargine (U-100) 100 unit/mL (3 mL) subcutaneous pen 44 unit SUBCUT QHS ml 03/29/18 losartan 100 mg tablet 100 mg PO QDAY tab 03/29/18 venlafaxine ER 37.5 mg capsule,extended release 24 hr 37.5 mg PO QHS #90 cap 03/29/18 rosuvastatin 20 mg tablet 20 mg PO QHS #90 tab 04/04/18 insulin lispro (U- 100) 100 unit/mL subcutaneous pen 38 unit SUBCUT AC #15 ml 04/07/18 blood sugar diagnostic strips See Dose Instructions .ROUTE .MEDSUPPLY ea 04/20/18 furosemide 40 mg tablet 40 mg PO QDAY #90 tab 04/20/18 levothyroxine 100 mcg tablet 100 mcg PO QDAY #30 tab 05/09/18 fluticasone 50 mcg/actuation nasal spray,suspension 1 spray INASL BID PRN #19.8 g 05/10/18 amlodipine 5 mg tablet 5 mg PO QDAY #90 tab 05/11/18 atenolol 25 mg tablet 25 mg PO QDAY tab 05/11/18 calcitriol 0.25 mcg capsule 0.25 mcg PO QDAY #30 cap 05/20/18 tramadol 50 mg tablet 50 mg PO .Q12 PRN #10 tab 07/04/18 - Patient Allergies Allergies/Adverse Reactions: Allergies Allergy/AdvReac Type Severity Reaction Status Date / Time Sulfa (Sulfonamide Allergy Severe hives Verified 07/05/18 14:28 Antibiotics) Penicillins Allergy Intermediate Anaphylaxis Verified 07/05/18 14:28 metals Allergy Severe Rash Uncoded 07/05/18 14:28 Past Medical History - heen HEENT History: Denies History Cardiovascular History: Hypertension, CHF, Hyperlipidemia Respiratory History: Denies History Gastrointestinal History: Denies History Genitourinary History: Renal Failure Endocrine History: Type 2 Diabetes (insulin), Hypothyroidism Musculoskeletal History: Back Pain Prosthesis or Implant: No Additional Musculoskeletal History: PT HAS SCOLIOSIS AND SPINAL STENOSIS Neurological History: Denies History Blood Disorders: Denies History Psychiatric History: Denies History History of Sexually Transmitted Diseases: No Female Reproductive History: Hysterectomy Obstetrical History: Denies History Cancer History: Denies History In Past Year Been Physically Harmed or Verbally Threatened: No History of MDRO: No History of Other Communicable Diseases: No Tobacco Use: Former Smoker In the Past 12 Months, Have Used or Abuse Any Substance: None Type / Date of Surgery: HYSTERECTOMY, NECK, TRIGGER FINGER X7 Anesthesia Reactions: No Malignant Hyperthermia: No Significant Family History: No pertinent family hx ROS - Limitations ROS Limitations: Clinical Condition (Patient is extremely anxious, histrionic, and poor historian. Further review of systems is unavailable.) Gen Adult/Medical Screen Exam - General Appearance General Appearance: POSITIVE: Alert, No Evidence of Trauma, Anxious, Severe Distress - HEENT HEENT: POSITIVE: Head Inspection Nml, Eyes Inspection Nml, Ears Inspection Nml, Nose Inspection Nml, Oral/Dental Inspect. Nml, Pharynx Inspect. Nml, PERRL, EOMI - Pupils Pupil Size: 5 mm: Bilateral - Neck Neck: POSITIVE: Normal Inspection, Thyroid Normal - Respiratory Respiratory: POSITIVE: No Respiratory Distress, Breath Sounds Normal, Chest Non-Tender - Cardiovascular Cardiovascular: POSITIVE: Regular Rate & Rhythm, No Murmur, No Gallop, PMI Normal Peripheral Pulses: Radial (L): 4+ - Abdomen Abdomen: Soft: (All Quadrants), Normal Bowel Sounds: (All Quadrants), Denies Tenderness: (All Quadrants), No Splenomegaly: (All Quadrants), No Hepatomegaly: (All Quadrants), No Guarding: (All Quadrants), No Rebound: (All Quadrants), No Palpable Pulse: (All Quadrants), No Palpabale Mass: (All Quadrants), No Distention: (All Quadrants), No Rigidity: (All Quadrants) - Back Back: POSITIVE: Normal Inspection - Neurological / Psychological Mental Status: POSITIVE: Tearful Orientation: POSITIVE: Oriented x 3 - Skin Skin: POSITIVE: Normal Color, Warm, Dry, No Rash - Extremities Extremity: Non-Tender: (All Extremities), Normal ROM: (All Extremities), Normal Inspection: (All Extremities), Pelvis Stable: (All Extremities) Procedures - Laceration/Wound Repair Did patient have a laceration repair: No Gen Adlt/Medical Scrn Progress - Results Reviewed by me Xrays/CTs/US Reviewed by me: Yes Discussed with Radiologist: Yes Lab Results Reviewed by Me: Yes CBC and BMP: 07/06/18 19:44 07/06/18 19:44 Lab Results:: Laboratory Results 07/06/18 07/06/18 07/06/18 19:44 19:44 19:44 WBC 8.18 RBC 3.36 L Hgb 11.1 L Hct 33.4 L MCV 99.4 H MCH 33.0 H MCHC 33.2 RDW Std Deviation 49.7 RDW Coeff of Sylvester 14.3 Plt Count 242 MPV 10.9 Immature Gran % (Auto) 0.2 Neut % (Auto) 57.3 Lymph % (Auto) 32.9 Hyde % (Auto) 6.4 Eos % (Auto) 2.7 Baso % (Auto) 0.5 Immature Gran # (Auto) 0.02 Neut # (Auto) 4.69 Lymph # (Auto) 2.69 Hyde # (Auto) 0.52 Eos # (Auto) 0.22 Baso # (Auto) 0.04 WBC Morphology Comment Normal morphology Plt Morphology Comment Normal morphology RBC Morph Comment Normal morphology ESR 105 H D-Dimer 764 H Sodium 143 Potassium 4.1 Chloride 100 Carbon Dioxide 28 Anion Gap 15 BUN 66 H Creatinine 4.1 H Estimated GFR It Security Architect BUN/Creatinine Ratio 16.09 Glucose 113 H Calculated Osmolality 315.0 H Calcium 9.9 Magnesium 2.3 Total Bilirubin 0.7 AST 31 ALT 19 Alkaline Phosphatase 80 CK-MB (CK-2) Troponin I Handheld C-Reactive Protein 1.8 H NT-Pro-B Natriuret Pep Total Protein 7.6 Albumin 4.3 Globulin 3.3 Albumin/Globulin Ratio 1.30 Amylase 135 H Lipase 194 TSH Free T4 Ur Collection Type Urine Color Urine Clarity Urine pH Ur Specific [place] Urine Protein Urine Glucose (UA) Urine Ketones Urine Occult Blood Urine Nitrate Urine Bilirubin Urine Urobilinogen Ur Leukocyte Esterase Urine RBC Urine WBC Ur Squamous Epith Cells Ur Renal Epithelial Cell Urine Crystals Urine Bacteria Urine Casts Urine Mucus Urine Trichomonas Urine Yeast Ur Culture Indicated? 07/06/18 07/06/18 07/06/18 19:44 19:44 19:44 WBC RBC Hgb Hct MCV MCH MCHC RDW Std Deviation RDW Coeff of Sylvester Plt Count MPV Immature Gran % (Auto) Neut % (Auto) Lymph % (Auto) Hyde % (Auto) Eos % (Auto) Baso % (Auto) Immature Gran # (Auto) Neut # (Auto) Lymph # (Auto) Hyde # (Auto) Eos # (Auto) Baso # (Auto) WBC Morphology Comment Plt Morphology Comment RBC Morph Comment ESR D-Dimer Sodium Potassium Chloride Carbon Dioxide Anion Gap BUN Creatinine Estimated GFR BUN/Creatinine Ratio Glucose Calculated Osmolality Calcium Magnesium Total Bilirubin AST ALT Alkaline Phosphatase CK-MB (CK-2) 2.19 Troponin I Handheld 0.010 C-Reactive Protein NT-Pro-B Natriuret Pep 3640 H Total Protein Albumin Globulin Albumin/Globulin Ratio Amylase Lipase TSH 5.91 H Free T4 Ur Collection Type Urine Color Urine Clarity Urine pH Ur Specific [place] Urine Protein Urine Glucose (UA) Urine Ketones Urine Occult Blood Urine Nitrate Urine Bilirubin Urine Urobilinogen Ur Leukocyte Esterase Urine RBC Urine WBC Ur Squamous Epith Cells Ur Renal Epithelial Cell Urine Crystals Urine Bacteria Urine Casts Urine Mucus Urine Trichomonas Urine Yeast Ur Culture Indicated? 07/06/18 07/06/18 19:44 21:10 WBC RBC Hgb Hct MCV MCH MCHC RDW Std Deviation RDW Coeff of Sylvester Plt Count MPV Immature Gran % (Auto) Neut % (Auto) Lymph % (Auto) Hyde % (Auto) Eos % (Auto) Baso % (Auto) Immature Gran # (Auto) Neut # (Auto) Lymph # (Auto) Hyde # (Auto) Eos # (Auto) Baso # (Auto) WBC Morphology Comment Plt Morphology Comment RBC Morph Comment ESR D-Dimer Sodium Potassium Chloride Carbon Dioxide Anion Gap BUN Creatinine Estimated GFR BUN/Creatinine Ratio Glucose Calculated Osmolality Calcium Magnesium Total Bilirubin AST ALT Alkaline Phosphatase CK-MB (CK-2) Troponin I Handheld C-Reactive Protein NT-Pro-B Natriuret Pep Total Protein Albumin Globulin Albumin/Globulin Ratio Amylase Lipase TSH Free T4 1.28 Ur Collection Type Voided specimen Urine Color Yellow Urine Clarity Slightly cloudy Urine pH 7.0 Ur Specific [place] 1.020 Urine Protein >300 A Urine Glucose (UA) Negative Urine Ketones Negative Urine Occult Blood Trace-lysed H Urine Nitrate Negative Urine Bilirubin Negative Urine Urobilinogen 0.2 Ur Leukocyte Esterase Negative Urine RBC 2-4 Urine WBC 2-4 Ur Squamous Epith Cells Few Ur Renal Epithelial Cell None Urine Crystals None Urine Bacteria Rare Urine Casts None Urine Mucus None Urine Trichomonas None Urine Yeast None Ur Culture Indicated? Culture not set EKG Interpreted/Reviewed By Me:: Yes (sinus bradycardia, 55 bpm, no ST changes.) EKG Interpretation:: POSITIVE: Abnormal EKG - Patient's Progress Pain Medication Addressed: POSITIVE: Yes Re-Examine Time: 21:20 Status: POSITIVE: Improved MDM / ED Course: Patient was evaluated, an IV started, blood drawn and sent to the lab for studies, EKG, chest x-ray, CT scan of neck chest and abdomen were obtained. Findings: CBC shows an anemia with hemoglobin of 11.1 and hematocrit of 33.4. ESR is 105 and CRP is 1.8. D-dimer 764. CK-MB is 2.19 and troponin is 0.010. CMP shows renal failure with a BUN of 66 and creatinine of 4.1, glucose is 113. Magnesium is normal at 2.3. BNP is 3640. TSH is elevated at 5.91 and free T4 is pending. EKG shows a sinus bradycardia with a rate of 55 beats a minute and no ST changes per my interpretation. This is very similar to yesterday's EKG. CT scan of the neck shows no acute findings. CT scan of the chest shows no acute cardiopulmonary decompensation. CT scan of the abdomen shows cholelithiasis without cholecystitis. Chest x-ray, per my interpretation, shows congestive heart failure and enlarged heart. Assessment: #1 renal failure. #2 anemia. #3 diabetes mellitus. 4 congestive heart failure. 5 elevated d-dimer. #6 cholelithiasis without cholecystitis. Plan: Patient is being admitted for VQ scan to evaluate her d-dimer tomorrow. - Consult Consulting MD will see pt:: POSITIVE: [facility] [place] Admit Counseled: POSITIVE: Patient, Family, RE: Lab Results, RE: Radiology Results, RE: DX, RE: Need for F/U Patient Care Time - Estimated PCT Patient Care Time (In Minutes): 45 Vital Signs - Recent Vital Signs Vital Signs: Vital Signs (Last 8 hours) Temp Pulse Resp BP Pulse Ox 07/06/18 19:24 96.9 F 64 18 166/91 94 - VS Reviewed Vital Signs Reviewed: Yes Discharge Clinical Impression: Back pain, Vomiting, Elevated d-dimer, Anemia, Chronic renal failure, Congestive heart failure, Diabetes mellitus, Cholelithiasis Discharge Disposition: Admit to Observation Condition: Stable Follow Up With: Laverne Krishna [Primary Care Provider] - Date Decision to Admit to Inpatient: 07/06/18 Time Decision to Admit to Inpatient: 21:18
[2018-07-06] MEDS ORDERED: LORazepam 2 MG/1 ML VIAL IVP ONE (19:36)
[2018-07-06] MEDS ORDERED: KETOROLAC 15 MG/1 ML VIAL IVP ONE (19:36)
[2018-07-06] MEDS ORDERED: ONDANSETRON 4 MG/2 ML VIAL IVP ONE (19:36)
[2018-07-06] MEDS ORDERED: Sodium Chloride 0.9% 1,000 ML PRIMARY IV ONE (19:36)
[2018-07-06 19:49] LABS: BASOPHILS # (AUTO) 0.04 10*3/UL; BASOPHILS % (AUTO) 0.5 % (0-1); EOSINOPHILS # (AUTO) 0.22 10*3/UL; EOSINOPHILS % (AUTO) 2.7 % (0-8); Hematocrit [HCT] 33.4 % (37.0-47.0); Hemoglobin [HGB] 11.1 g/dL (12.0-16.0); LYMPHOCYTES # (AUTO) 2.69 10*3/uL; MEAN CORPUSCULAR HGB CONC 33.2 g/dL (33-37); MEAN CORPUSCULAR VOLUME 99.4 FL (81-99); MEAN PLATELET VOLUME 10.9 FL (7.4-12.2); MONOCYTES # (AUTO) 0.52 10*3/UL (0.3-0.8); MONOCYTES % (AUTO) 6.4 % (5-15); NEUTROPHILS # (AUTO) 4.69 10*3/UL; NEUTROPHILS % (AUTO) 57.3 % (50-80); PLATELET MORPHOLOGY COMMENT NORMAL MORPHOLOGY (NORM); RBC MORPHOLOGY COMMENT NORMAL MORPHOLOGY (NORM); RED BLOOD COUNT 3.36 10^6/uL (4.20-5.40); WBC MORPHOLOGY COMMENT NORMAL MORPHOLOGY (NORM)
--- NOTE | 2018-07-06 19:57 | EKG ---
[address] [address] Measurements Intervals [place] Rate: 55 P: 21 IN: 182 QRS: 33 QRSD: 92 T: 28 QT: 440 QTc: 428 Interpretive Statements SINUS BRADYCARDIA Compared to ECG 07/05/2018 15:17:44 No significant changes Electronically Signed On 07-07-18 09:18:07 MDT by Sajan Mills [email or web address]
[2018-07-06 20:01] LABS: BLOOD UREA NITROGEN 66 mg/dL (7-22); BUN/CREATININE RATIO 16.09 (6-20); LIPASE 194 IU/L (23-300); SERUM ALBUMIN 4.3 g/dL (3.5-4.8)
[2018-07-06 20:38] LABS: Erythrocyte Sediment Rate 105 MM/HR (0-20)
[2018-07-06 21:11] LABS: BILIRUBIN,URINE NEGATIVE (NEG); CLARITY,URINE Slightly Cloudy (CLEAR); COLOR,URINE YELLOW (Y); GLUCOSE, URINE (UA) NEGATIVE (NEG); OCCULT BLOOD,URINE Trace-lysed (NEG); PROTEIN,URINE >300 mg/dl (NEG); UROBILINOGEN,URINE 0.2 EU/dL (0.2)
[2018-07-06 21:12] LABS: URINE SAMPLE TYPE VOIDED SPECIMEN
[2018-07-06 21:16] LABS: BACTERIA,URINE RARE; SQUAMOUS EPITHELIAL CELL,UR FEW
--- NOTE | 2018-07-06 21:16 | DI ---
EXAM: CT Abdomen and Pelvis With Intravenous Contrast CLINICAL HISTORY: ITS.REASON vomiting Physician Notes: Tech Comments: TECHNIQUE: Axial computed tomography images of the abdomen and pelvis with intravenous contrast. COMPARISON: No relevant prior studies available. FINDINGS: Lung bases: Unremarkable. No mass. No consolidation. ABDOMEN: Liver: Unremarkable. No mass. Gallbladder and bile ducts: Cholelithiasis. Pancreas: Unremarkable. No mass. No ductal dilation. Spleen: Unremarkable. No splenomegaly. Adrenals: Unremarkable. No mass. Kidneys and ureters: Unremarkable. No solid mass. No hydronephrosis. Stomach and bowel: No obstruction. No mucosal thickening. PELVIS: Appendix: No findings to suggest acute appendicitis. Bladder: Unremarkable. No mass. Reproductive: Unremarkable as visualized. ABDOMEN and PELVIS: Intraperitoneal space: Unremarkable. No free air. No significant fluid collection. Bones/joints: No acute fracture. No dislocation. Soft tissues: Unremarkable. Vasculature: No abdominal aortic aneurysm. Lymph nodes: Unremarkable. No enlarged lymph nodes. IMPRESSION: Cholelithiasis.
--- NOTE | 2018-07-06 21:17 | DI ---
EXAM: CT Chest Without Intravenous Contrast CLINICAL HISTORY: ITS.REASON cp Physician Notes: Tech Comments: TECHNIQUE: Axial computed tomography images of the chest without intravenous contrast. COMPARISON: No relevant prior studies available. FINDINGS: Lungs: Unremarkable. No mass. No consolidation. Pleural space: Unremarkable. No pneumothorax. No significant effusion. Heart: Unremarkable. No cardiomegaly. No significant pericardial effusion. Bones/joints: No acute fracture. No dislocation. Soft tissues: Unremarkable. Vasculature: Unremarkable. No thoracic aortic aneurysm. Lymph nodes: Unremarkable. No enlarged lymph nodes. IMPRESSION: Normal chest CT.
--- NOTE | 2018-07-06 21:18 | DI ---
EXAM: CT Neck Without Intravenous Contrast CLINICAL HISTORY: ITS.REASON pain with swallowing Physician Notes: Tech Comments: TECHNIQUE: Axial computed tomography images of the neck without intravenous contrast. COMPARISON: No relevant prior studies available. FINDINGS: Oropharynx: Unremarkable. No significant tonsillar enlargement. Hypopharynx: Unremarkable. Larynx: Unremarkable. Normal epiglottis. Trachea: Unremarkable. Retropharyngeal space: Unremarkable. Submandibular/parotid glands: Unremarkable. Glands are normal in size. Thyroid: Unremarkable. No enlarged or calcified nodules. Bones/joints: Fusion hardware intact No acute fracture. Soft tissues: Unremarkable. Vasculature: No suspicious findings. Lymph nodes: Unremarkable. No lymphadenopathy. Lung apices: Unremarkable as visualized. IMPRESSION: No acute findings.
[2018-07-06] MEDS ORDERED: Acetaminophen 1000mg Inj 1,000 MG/100 ML VIAL IV PRN (21:37)
--- NOTE | 2018-07-06 22:40 | PDOC ---
HPI - History of Present Illness Date of Service: 07/06/18 Time of Service: 22:30 Chief Complaint: Vomiting since yesterday with difficulty of swallowing. Question of vomiting some blood. History of Present Illness: This is an 82 years old female with medical history significant for history of diabetes, hypertension, chronic kidney disease stage IV been followed up by nephrology in [place], hypothyroidism and chronic back pain who presented to the hospital with history of vomiting since yesterday multiple times can't keep anything down there is a question of vomiting some blood according to her today, she did also report history of swallowing problem since yesterday. She did not take her medication today except the Lantus. She did have problem with her back pain yesterday and she came into the ER was given morphine and Percocet she took only one dosage of Percocet. She came into into the ER today because of the persistent swallowing difficulty and vomiting had multiple tests were negative except cholelithiasis. Because of continuous symptoms she was admitted. She is denying abdominal pain. No diarrhea. There is no neck pain. Past Medical History Medical History: 1. History of diabetes type II on insulin. 2. History of chronic back pain. 3. History of hypertension. 4. History of chronic kidney disease stage IV and followed up by nephrology in [place]. 5. History of hy perlipidemia. 6. History of depression. 7. History of hypothyroidism. 8. History of bleeding ulcer according to her blood transfusion in the past Surgical History: 1. History of hysterectomy Past Social History: Does not smoke, does not drink, lives by herself. No drugs. Tobacco Use: Former Smoker In the Past 12 Months, Have Used or Abuse Any of the Following Substance: None Medication / Allergies Home Medications: Home Medications Medication Instructions Recorded Confirmed Type triamcinolone acetonide 0.025 % 1 applic TOPICAL QDAY #80 g 07/19/17 07/06/18 Rx topical cream Pen Needle, Diabetic [Pen Needle] 0 unit .ROUTE .MEDSUPPLY 10/02/17 07/06/18 History insulin glargine (U-100) 100 44 unit SUBCUT QHS ml 03/29/18 07/06/18 History unit/mL (3 mL) subcutaneous pen losartan 100 mg tablet 100 mg PO QDAY tab 03/29/18 07/06/18 History venlafaxine ER 37.5 mg 37.5 mg PO QHS #90 cap 03/29/18 07/06/18 Rx capsule,extended release 24 hr rosuvastatin 20 mg tablet 20 mg PO QHS #90 tab 04/04/18 07/06/18 Rx insulin lispro (U- 100) 100 38 unit SUBCUT AC #15 ml 04/07/18 07/06/18 Rx unit/mL subcutaneous pen blood sugar diagnostic strips See Dose Instructions .ROUTE 04/20/18 07/06/18 History .MEDSUPPLY ea furosemide 40 mg tablet 40 mg PO QDAY #90 tab 04/20/18 07/06/18 Rx levothyroxine 100 mcg tablet 100 mcg PO QDAY #30 tab 05/09/18 07/06/18 Rx fluticasone 50 mcg/actuation nasal 1 spray INASL BID PRN #19.8 g 05/10/18 07/06/18 Rx spray,suspension amlodipine 5 mg tablet 5 mg PO QDAY #90 tab 05/11/18 07/06/18 Rx atenolol 25 mg tablet 25 mg PO QDAY tab 05/11/18 07/06/18 History calcitriol 0.25 mcg capsule 0.25 mcg PO QDAY #30 cap 05/20/18 07/06/18 Rx tramadol 50 mg tablet 50 mg PO .Q12 PRN #10 tab 07/04/18 07/06/18 Rx Allergies/Adverse Reactions: Allergies Allergy/AdvReac Type Severity Reaction Status Date / Time Sulfa (Sulfonamide Allergy Severe hives Verified 07/07/18 06:36 Antibiotics) Penicillins Allergy Intermediate Anaphylaxis Verified 07/07/18 06:36 metals Allergy Severe Rash Uncoded 07/07/18 06:36 Review of Systems - Review of Systems All Systems: Reviewed & No Additional Complaints Except as Stated Exam - Vitals Vital Signs: Vital Signs Temperature 96.9 F Pulse Rate [Pulse Oximeter] 64 Respiratory Rate 18 Blood Pressure [Left Arm] 166/91 Pulse Ox 94 Oxygen Delivery Method Room Air Height 5 ft 3 in Weight 200 lb - General General Appearance: No Acute Distress, Cooperative, Obese - Head Head Exam: Normal Inspection - Eye Eye Exam: POSITIVE: Normal Appearance - ENT ENT Exam: POSITIVE: Normal Exam - Neck Neck Exam: Normal Inspection - Respiratory Respiratory Exam: POSITIVE: Clear to Auscultation - Bilaterally - Cardiovascular Cardiovascular Exam: POSITIVE: RRR - GI/Abdominal GI/Abdominal Exam: POSITIVE: Normal Bowel Sounds, Non Tender, Non Distended, Soft, No Organomegaly - Rectal Rectal Exam: POSITIVE: Deferred - External Exam: POSITIVE: Deferred Exam: POSITIVE: Deferred - Extremities Extremities Exam: POSITIVE: Normal Inspection - Back Back Exam: POSITIVE: Normal Inspection - Neurological Neurological Exam: POSITIVE: Alert, Oriented x 3, CN II-XII Intact, No Facial Droop, Speech Intact / Clear, Moves All Extremities Equally - Psychiatric Psychiatric Exam: POSITIVE: Normal Affect - Integumentary Integumentary Exam: POSITIVE: Normal Color Results - Labs CBC and BMP: 07/07/18 04:23 07/07/18 04:23 - EKG Data -: EKG Interpreted by Me Rate: Bradycardia - EKG Data EKG Interpretation: Other (EKG showed sinus bradycardia) - Imaging Status: Report Reviewed by Me (CT chest was normal, CT abdomen showed cholelithiasis, CT neck was normal) Assessment and Plan - Patient Problems (1) Vomiting Current Visit: Yes Status: Acute Comment: Maybe secondary to pain medication, or gastritis. Will put her on Protonix some IV fluid repeat her labs in the morning and discuss with Dr. Dr. Lynch in a.m. there Is a question of vomiting blood maybe secondary to the vomiting itself. We'll watch her labs. Code(s): R11.10 - Vomiting, unspecified (2) Diabetes mellitus Current Visit: Yes Status: Acute Comment: Continue with Lantus will put her on sliding scale also. We'll continue to watch her blood sugar. Code(s): E11.9 - Type 2 diabetes mellitus without complications (3) Essential hypertension Current Visit: No Status: Chronic Onset Date: 07/20/16 Comment: Same medication. Code(s): I10 - Essential (primary) hypertension (4) Chronic renal failure Current Visit: Yes Status: Acute Comment: We'll give her cautious amount of fluid repeat her labs in the morning. Code(s): N18.9 - Chronic kidney disease, unspecified (5) Elevated d-dimer Current Visit: Yes Status: Acute Comment: Of unclear significance , she vomited some blood this may be secondary to that. She is denying shortness of breath, chest pain. Her symptoms are totally unrelated to the lab test. I think will do ultrasound of the legs. She is not hypoxic. So I think it's low probability for PE or DVT clinincally. The ultrasound is negative I don't think we'll pursue that more. Code(s): R79.89 - Other specified abnormal findings of blood chemistry
[2018-07-06] MEDS ORDERED: CALCIUM CARBONATE 500 MG (TUMS) CHEWABLE TABLET PO PRN (22:50)
[2018-07-06] MEDS ORDERED: ACETAMINOPHEN 325 MG TABLET PO PRN (22:50)
[2018-07-06] MEDS ORDERED: ONDANSETRON 4 MG/2 ML VIAL IVP PRN (22:50)
[2018-07-06] MEDS ORDERED: DOCUSATE 100 MG CAPSULE PO PRN (22:50)
[2018-07-06] MEDS ORDERED: LIDOCAINE W/ SODIUM BICARB 0.5 ML SYR SUBD PRN (22:50)
[2018-07-06] MEDS ORDERED: Sodium Chloride 0.9% 1,000 ML PRIMARY IV SCH (23:00)
[2018-07-06] MEDS: PANTOPRAZOLE IV 40 MG VIAL IVP SCH (23:05)
[2018-07-07 05:12] LABS: BASOPHILS # (AUTO) 0.04 10*3/UL; BASOPHILS % (AUTO) 0.6 % (0-1); EOSINOPHILS # (AUTO) 0.26 10*3/UL; EOSINOPHILS % (AUTO) 4.1 % (0-8); Hematocrit [HCT] 28.3 % (37.0-47.0); Hemoglobin [HGB] 9.1 g/dL (12.0-16.0); LYMPHOCYTES # (AUTO) 2.57 10*3/uL; MEAN CORPUSCULAR HEMOGLOBIN 32.6 PG (27-31); MEAN CORPUSCULAR HGB CONC 32.2 g/dL (33-37); MEAN CORPUSCULAR VOLUME 101.4 FL (81-99); MEAN PLATELET VOLUME 11.3 FL (7.4-12.2); MONOCYTES # (AUTO) 0.48 10*3/UL (0.3-0.8); MONOCYTES % (AUTO) 7.6 % (5-15); NEUTROPHILS # (AUTO) 2.94 10*3/UL; NEUTROPHILS % (AUTO) 46.7 % (50-80); RED BLOOD COUNT 2.79 10^6/uL (4.20-5.40)
[2018-07-07 05:15] LABS: PLATELET MORPHOLOGY COMMENT NORMAL MORPHOLOGY (NORM); RBC MORPHOLOGY COMMENT NORMAL MORPHOLOGY (NORM); WBC MORPHOLOGY COMMENT NORMAL MORPHOLOGY (NORM)
[2018-07-07 05:19] LABS: BLOOD UREA NITROGEN 62 mg/dL (7-22); BUN/CREATININE RATIO 15.89 (6-20)
[2018-07-07] MEDS ORDERED: LEVOTHYROXINE 100 MCG TABLET PO SCH (05:30)
[2018-07-07] MEDS: Insulin Lispro Flexpen 300 UNIT/3 ML INSULN.PEN SUBCUT SCH ×2 (06:52→11:50)
--- NOTE | 2018-07-07 06:55 | DI ---
XR CXR 1VW 07/06/2018 7:38 PM [place]: [facility] [place] Comparison: 05/04/2018. Findings: A single portable frontal view of the chest is submitted. Images demonstrate normal aeration without focal consolidation. There is no large pneumothorax or ple ural effusion. The cardiomediastinal silhouette is enlarged with pulmonary vascular congestion. The o sseous structures are not significantly changed. Impression: 1. There is no dense consolidation, pleural effusion, or pneumothorax. 2. There are findings concerning for pulmonary edema in the setting of heart failure.
[2018-07-07] MEDS ORDERED: ATENOLOL 25 MG TABLET PO SCH (09:00)
[2018-07-07] MEDS ORDERED: CALCITRIOL 0.25 MCG CAPSULE PO SCH (09:00)
[2018-07-07] MEDS ORDERED: AmLODIPine Tab 5 MG TABLET PO SCH (09:00)
[2018-07-07] MEDS ORDERED: Insulin Glargine SoloStar Inj 100 UNIT/ML INSULN.PEN SUBCUT SCH (09:00)
[2018-07-07] MEDS ORDERED: LOSARTAN 50 MG TABLET PO SCH (09:00)
[2018-07-07] MEDS: PANTOPRAZOLE IV 40 MG VIAL IVP SCH (11:50)
[2018-07-07 12:42] VITALS: BP 185/53; RESP 20; TEMP 97.4; O2SAT 94
--- NOTE | 2018-07-07 13:43 | DI ---
US Veins, UE/LE Bilat 07/07/2018 7:05 AM History: [facility] [place] ^elevated D dimer ^bilateral lower leg venous ultrasound Comparison: None. Procedure: Bilateral lower extremity Doppler ultrasound. Findings: There is normal flow, compressibility, and respiratory variation from the level of the comm on femoral vein to the popliteal vein bilaterally. There is normal augmentation of flow. Additionally , the deep veins below the knee that could be imaged were evaluated without evidence of thrombosis, t rojas sensitivity is much lower in the evaluation of vessels below the knee. Impression: No sonographic evidence of deep vein thrombosis.
--- NOTE | 2018-07-07 13:53 | DCSUMMARY ---
Hospitalization Summary Admit Date: 07/06/2018 Discharge Date: 07/07/18 Hospital Course: Discharge diagnoses 1. Difficulty with swallowing and vomiting resolved 2. History of diabetes 3. History of hypertension 4. History of chronic kidney disease stage IV 5. History of hypothyroidism 6. History of chronic back pain 7. History of hyperlipidemia 8. History of depression 9. History of bleeding ulcer needed blood transfusion the past 10. Cholelithiasis Hospital course This is an 82 years old female with medical history significant for history of diabetes, hypertension, chronic kidney disease stage IV, hypothyroidism and chronic back pain who presented to the hospital with history of vomiting that started the day before admission multiple times couldn't keep anything down there was a question of some blood with vomitus according to her she did also reports difficulty swallowing since the day before presentation. She did not take any of her medication except her Lantus. She does have a problem with her back and she came into the ER the day before admission and she received morphine and Zofran and she was discharged on oxycodone. Because of the continuous symptoms of the vomiting and the difficulty of swallowing she was admitted. She did have multiple test in the ER including multiple CTs they're all negative except cholelithiasis. We gave some cautious amount of fluid because of her chronic renal failure and put her on Protonix. The next day she started to feel improved her swallowing improved vomiting stopped. I thought the vomiting is secondary to the narcotic medication that she received. The difficulty swallowing may be secondary to some esophagitis from the vomiting. She did tolerate diet and her symptoms resolved as I said. We discharged her home on Protonix and follow-up with her primary and Dr. Lynch. The reason for F/U with Dr. Lynch because she mentioned that there was some blood and I did discuss it on the phone with him. I think the bleeding if it is truly happened is secondary to the vomiting itself with possible Diana-Tripp tear. since she is hemodynamically stable and her symptoms resolved we thought that she can be discharged home and consider scope as an outpatient. She did have some elevated d-dimer and I think this is secondary to her age or potentially to some bleeding. There was no symptom to suggest the PE so we did not pursue more testing. We did do ultrasound of her legs and it was negative. I think the clinical probability of PE is very low. She has a chronic back pain issues and she is scheduled for an epidural on July 08 in [place]. Laboratory Results 07/06/18 07/06/18 07/06/18 19:44 19:44 19:44 WBC 8.18 RBC 3.36 L Hgb 11.1 L Hct 33.4 L MCV 99.4 H MCH 33.0 H MCHC 33.2 RDW Std Deviation 49.7 RDW Coeff of Sylvester 14.3 Plt Count 242 MPV 10.9 Immature Gran % (Auto) 0.2 Neut % (Auto) 57.3 Lymph % (Auto) 32.9 [place] % (Auto) 6.4 Eos % (Auto) 2.7 Baso % (Auto) 0.5 Immature Gran # (Auto) 0.02 Neut # (Auto) 4.69 Lymph # (Auto) 2.69 [place] # (Auto) 0.52 Eos # (Auto) 0.22 Baso # (Auto) 0.04 WBC Morphology Comment Normal morphology Plt Morphology Comment Normal morphology RBC Morph Comment Normal morphology ESR 105 H D-Dimer 764 H Sodium 143 Potassium 4.1 Chloride 100 Carbon Dioxide 28 Anion Gap 15 BUN 66 H Creatinine 4.1 H Estimated GFR Housekeeping Aid BUN/Creatinine Ratio 16.09 Glucose 113 H Calculated Osmolality 315.0 H Calcium 9.9 Magnesium 2.3 Total Bilirubin 0.7 AST 31 ALT 19 Alkaline Phosphatase 80 CK-MB (CK-2) Troponin I Handheld C-Reactive Protein 1.8 H NT-Pro-B Natriuret Pep Total Protein 7.6 Albumin 4.3 Globulin 3.3 Albumin/Globulin Ratio 1.30 Amylase 135 H Lipase 194 TSH Free T4 Ur Collection Type Urine Color Urine Clarity Urine pH Ur Specific [place] Urine Protein Urine Glucose (UA) Urine Ketones Urine Occult Blood Urine Nitrate Urine Bilirubin Urine Urobilinogen Ur Leukocyte Esterase Urine RBC Urine WBC Ur Squamous Epith Cells Ur Renal Epithelial Cell Urine Crystals Urine Bacteria Urine Casts Urine Mucus Urine Trichomonas Urine Yeast Ur Culture Indicated? 07/06/18 07/06/18 07/06/18 19:44 19:44 19:44 WBC RBC Hgb Hct MCV MCH MCHC RDW Std Deviation RDW Coeff of Sylvester Plt Count MPV Immature Gran % (Auto) Neut % (Auto) Lymph % (Auto) [place] % (Auto) Eos % (Auto) Baso % (Auto) Immature Gran # (Auto) Neut # (Auto) Lymph # (Auto) [place] # (Auto) Eos # (Auto) Baso # (Auto) WBC Morphology Comment Plt Morphology Comment RBC Morph Comment ESR D-Dimer Sodium Potassium Chloride Carbon Dioxide Anion Gap BUN Creatinine Estimated GFR BUN/Creatinine Ratio Glucose Calculated Osmolality Calcium Magnesium Total Bilirubin AST ALT Alkaline Phosphatase CK-MB (CK-2) 2.19 Troponin I Handheld 0.010 C-Reactive Protein NT-Pro-B Natriuret Pep 3640 H Total Protein Albumin Globulin Albumin/Globulin Ratio Amylase Lipase TSH 5.91 H Free T4 Ur Collection Type Urine Color Urine Clarity Urine pH Ur Specific [place] Urine Protein Urine Glucose (UA) Urine Ketones Urine Occult Blood Urine Nitrate Urine Bilirubin Urine Urobilinogen Ur Leukocyte Esterase Urine RBC Urine WBC Ur Squamous Epith Cells Ur Renal Epithelial Cell Urine Crystals Urine Bacteria Urine Casts Urine Mucus Urine Trichomonas Urine Yeast Ur Culture Indicated? 07/06/18 07/06/18 07/07/18 19:44 21:10 04:23 WBC RBC Hgb Hct MCV MCH MCHC RDW Std Deviation RDW Coeff of Sylvester Plt Count MPV Immature Gran % (Auto) Neut % (Auto) Lymph % (Auto) [place] % (Auto) Eos % (Auto) Baso % (Auto) Immature Gran # (Auto) Neut # (Auto) Lymph # (Auto) [place] # (Auto) Eos # (Auto) Baso # (Auto) WBC Morphology Comment Plt Morphology Comment RBC Morph Comment ESR D-Dimer Sodium 144 Potassium 3.6 L Chloride 105 Carbon Dioxide 26 Anion Gap 13 BUN 62 H Creatinine 3.9 H Estimated GFR Housekeeping Aid BUN/Creatinine Ratio 15.89 Glucose 63 L Calculated Osmolality 313.0 H Calcium 8.8 Magnesium Total Bilirubin AST ALT Alkaline Phosphatase CK-MB (CK-2) Troponin I Handheld C-Reactive Protein NT-Pro-B Natriuret Pep Total Protein Albumin Globulin Albumin/Globulin Ratio Amylase Lipase TSH Free T4 1.28 Ur Collection Type Voided specimen Urine Color Yellow Urine Clarity Slightly cloudy Urine pH 7.0 Ur Specific [place] 1.020 Urine Protein >300 A Urine Glucose (UA) Negative Urine Ketones Negative Urine Occult Blood Trace-lysed H Urine Nitrate Negative Urine Bilirubin Negative Urine Urobilinogen 0.2 Ur Leukocyte Esterase Negative Urine RBC 2-4 Urine WBC 2-4 Ur Squamous Epith Cells Few Ur Renal Epithelial Cell None Urine Crystals None Urine Bacteria Rare Urine Casts None Urine Mucus None Urine Trichomonas None Urine Yeast None Ur Culture Indicated? Culture not set 07/07/18 04:23 WBC 6.30 RBC 2.79 L Hgb 9.1 L Hct 28.3 L MCV 101.4 H MCH 32.6 H MCHC 32.2 L RDW Std Deviation 51.0 H RDW Coeff of Sylvester 14.4 Plt Count 189 MPV 11.3 Immature Gran % (Auto) 0.2 Neut % (Auto) 46.7 L Lymph % (Auto) 40.8 [place] % (Auto) 7.6 Eos % (Auto) 4.1 Baso % (Auto) 0.6 Immature Gran # (Auto) 0.01 Neut # (Auto) 2.94 Lymph # (Auto) 2.57 [place] # (Auto) 0.48 Eos # (Auto) 0.26 Baso # (Auto) 0.04 WBC Morphology Comment Normal morphology Plt Morphology Comment Normal morphology RBC Morph Comment Normal morphology ESR D-Dimer Sodium Potassium Chloride Carbon Dioxide Anion Gap BUN Creatinine Estimated GFR BUN/Creatinine Ratio Glucose Calculated Osmolality Calcium Magnesium Total Bilirubin AST ALT Alkaline Phosphatase CK-MB (CK-2) Troponin I Handheld C-Reactive Protein NT-Pro-B Natriuret Pep Total Protein Albumin Globulin Albumin/Globulin Ratio Amylase Lipase TSH Free T4 Ur Collection Type Urine Color Urine Clarity Urine pH Ur Specific [place] Urine Protein Urine Glucose (UA) Urine Ketones Urine Occult Blood Urine Nitrate Urine Bilirubin Urine Urobilinogen Ur Leukocyte Esterase Urine RBC Urine WBC Ur Squamous Epith Cells Ur Renal Epithelial Cell Urine Crystals Urine Bacteria Urine Casts Urine Mucus Urine Trichomonas Urine Yeast Ur Culture Indicated? Discharge instruction Diet diabetic Activity as tolerated Medications Current Medication(s) Medication Instructions Recorded Confirmed Type triamcinolone acetonide 0.025 % 1 applic TOPICAL QDAY #80 g 07/19/17 07/06/18 Rx topical cream Pen Needle, Diabetic [Pen Needle] 0 unit .ROUTE .MEDSUPPLY 10/02/17 07/06/18 History insulin glargine (U-100) 100 44 unit SUBCUT QHS ml 03/29/18 07/06/18 History unit/mL (3 mL) subcutaneous pen losartan 100 mg tablet 100 mg PO QDAY tab 03/29/18 07/06/18 History venlafaxine ER 37.5 mg 37.5 mg PO QHS #90 cap 03/29/18 07/06/18 Rx capsule,extended release 24 hr rosuvastatin 20 mg tablet 20 mg PO QHS #90 tab 04/04/18 07/06/18 Rx insulin lispro (U- 100) 100 38 unit SUBCUT AC #15 ml 04/07/18 07/06/18 Rx unit/mL subcutaneous pen blood sugar diagnostic strips See Dose Instructions .ROUTE 04/20/18 07/06/18 Hi story .MEDSUPPLY ea furosemide 40 mg tablet 40 mg PO QDAY #90 tab 04/20/18 07/06/18 Rx levothyroxine 100 mcg tablet 100 mcg PO QDAY #30 tab 05/09/18 07/06/18 Rx fluticasone 50 mcg/actuation nasal 1 spray INASL BID PRN #19.8 g 05/10/18 07/06/18 Rx spray,suspension amlodipine 5 mg tablet 5 mg PO QDAY #90 tab 05/11/18 07/06/18 Rx atenolol 25 mg tablet 25 mg PO QDAY tab 05/11/18 07/06/18 History calcitriol 0.25 mcg capsule 0.25 mcg PO QDAY #30 cap 05/20/18 07/06/18 Rx tramadol 50 mg tablet 50 mg PO .Q12 PRN #10 tab 07/04/18 07/06/18 Rx Aspirin [Aspir 81] 1 tab PO DAILY 07/07/18 07/07/18 History Beta Carot W/Vit E,C,Min Tab 1 tab PO DAILY 07/07/18 07/07/18 History [Ocuvite Tab] Calcium Carbonate [Tums] 2 tab PO TID 07/07/18 07/07/18 History Calcium Carbonate/Vitamin D3 2 tab PO DAILY 07/07/18 07/07/18 History [Calcium 500-Vit D3 200 [place]] Cholecalciferol [Vitamin D3] 1,000 iu PO DAILY 07/07/18 07/07/18 History Magnesium Oxide 400 mg PO DAILY 07/07/18 07/07/18 History Pantoprazole Sodium [Protonix] 40 mg PO DAILY #30 tab 07/07/18 Rx Follow-up with PCP in 1-2 weeks, follow-up with Dr. Lynch 1-2 weeks Condition at discharge stable for discharge Exam - Vitals Vital Signs: Vital Signs Temperature 97.4 F Temperature Source Temporal Artery Scan Pulse Rate [Pulse Oximeter] 57 Pulse Rate 50 Respiratory Rate 20 Blood Pressure [Left Arm] 185/53 Blood Pressure 177/61 Pulse Ox 94 Oxygen Delivery Method Room Air Height 5 ft 3 in Weight 213 lb 6 oz - General General Appearance: No Acute Distress, Cooperative, Obese - Head Head Exam: Normal Inspection - Eye Eye Exam: POSITIVE: Normal Appearance - ENT ENT Exam: POSITIVE: Normal Exam - Neck Neck Exam: Normal Inspection - Respiratory Respiratory Exam: POSITIVE: Clear to Auscultation - Bilaterally - Cardiovascular Cardiovascular Exam: POSITIVE: RRR - GI/Abdominal GI/Abdominal Exam: POSITIVE: Normal Bowel Sounds, Non Tender, Non Distended, Soft, No Organomegaly - Rectal Rectal Exam: POSITIVE: Deferred - External Exam: POSITIVE: Deferred - Extremities Extremities Exam: POSITIVE: Normal Inspection - Back Back Exam: POSITIVE: Normal Inspection - Neurological Neurological Exam: POSITIVE: Alert, Oriented x 3, CN II-XII Intact, No Facial Droop, Speech Intact / Clear, Moves All Extremities Equally - Psychiatric Psychiatric Exam: POSITIVE: Normal Affect - Integumentary Integumentary Exam: POSITIVE: Normal Color Patient Problems - Patient Problem List (1) Vomiting Current Visit: Yes Status: Acute Code(s): R11.10 - Vomiting, unspecified Category: Medical (2) Diabetes mellitus Current Visit: Yes Status: Acute Code(s): E11.9 - Type 2 diabetes mellitus without complications Category: Medical (3) Essential hypertension Current Visit: No Status: Chronic Onset Date: 07/20/16 Code(s): I10 - Essential (primary) hypertension Category: Medical (4) Chronic renal failure Current Visit: Yes Status: Acute Code(s): N18.9 - Chronic kidney disease, unspecified Category: Medical (5) Elevated d-dimer Current Visit: Yes Status: Acute Code(s): R79.89 - Other specified abnormal findings of blood chemistry Category: Medical
[2018-07-07] MEDS ORDERED: VENLAFAXINE XR 37.5 MG CAP PO SCH (21:00)
[2018-07-07] MEDS ORDERED: Rosuvastatin Tab 20 MG TAB PO SCH (21:00)
[2018-07-08] MEDS ORDERED: Insulin Glargine SoloStar Inj 100 UNIT/ML INSULN.PEN SUBCUT SCH (09:00)
== END 2018-07-07 14:10 | disposition home or self-care (01) ==
LOC: MED/SURG 19:14 → ER 19:14 → MED/SURG 22:15
PROVIDERS: ADMIT Internal Medicine; ATTEND Internal Medicine